=== PATIENT | female | born 1985 | race Caucasian/White ===

== ENCOUNTER 2018-06-29 03:11 | Emergency (ER) | payer BC, MEDICAID ==
[~2018-06-29] VITALS: Ht 152.4 cm; Wt 41.5 kg
[~2018-06-29 03:11] MED LIST: CHLO25CA10 PO; PHE12.5T PO
[2018-06-29] MEDS ORDERED: NORMAL SALINE IV ONE (03:40)
[2018-06-29] MEDS ORDERED: tranexamic acid 100mg/ml inj. TP ONE (03:40)
[2018-06-29] MEDS ORDERED: TRANEXAMIC ACID IV ONE (03:40)
[2018-06-29] MEDS ORDERED: tranexamic acid 100mg/ml inj. IV ONE (03:40)
[2018-06-29] MEDS ORDERED: ONDA8TAB9 PO (05:43)
[2018-06-29 05:58] VITALS: BP 100/53
== END 2018-06-29 06:00 | disposition home or self-care (01) ==
LOC: ER 03:12
DX: K08.89 Other specified disorders of teeth and supporting structures (principal); Z98.818 Other dental procedure status; Z98.890 Other specified postprocedural states; Z98.51 Tubal ligation status
CPT/HCPCS: 96365; 99284; J7030